=== PATIENT | female | born 1950 | race African-American/Black ===

== ENCOUNTER 2018-11-24 05:41 | Inpatient (IN) | payer OTHER ==
[~2018-11-24] VITALS: Ht 157.5 cm; Wt 73.8 kg
[~2018-11-24 05:41] MED LIST: COLESTID1 GM; HYDROCODON-ACE1 EAC5; NORCO 5-325 TA1 EACH PO; PERCOCET 5-3251 EACH PO; TRIAMTERENE-HC1 EAC3; ZOFRAN ODT4 MG PO
[2018-12-17] MEDS ORDERED: COLESTID1 GM PO (15:34)
[2018-12-17] MEDS ORDERED: TRIAMTERENE-HC1 EAC3 PO (15:34)
[2018-12-17] MEDS ORDERED: NORVASC5 MG PO (15:35)
[2018-12-17] MEDS ORDERED: LEVOXYL112 MCG PO (15:36)
[2018-12-17] MEDS ORDERED: CENTRUM SILVER1 EAC4 PO (15:36)
[2018-12-17] MEDS ORDERED: VITAMIN B-12250 MCG PO (15:38)
[2018-12-17] MEDS ORDERED: METHADONE HCL40 MG PO (15:38)
[2018-12-17] MEDS ORDERED: TRAMADOL 50 MG50 MG PO (16:25)
[2018-12-24 13:18] VITALS: BP 118/71
[2018-12-24 13:19] LABS: URINE BILIRUBIN NEGATIVE (Negative); URINE BLOOD NEGATIVE (Negative); URINE CLARITY CLEAR; URINE COLOR YELLOW; URINE GLUCOSE-RANDOM* NEGATIVE (Negative); URINE KETONES NEGATIVE (Negative); URINE LEUKOCYTES NEGATIVE (Negative); URINE NITRITE NEGATIVE (Negative); URINE PROTEIN (DIPSTICK) NEGATIVE (Negative); URINE UROBILINOGEN 0.2 E.U./dl (0.2-1.0)
[2018-12-24 14:30] LABS: HEMATOCRIT 33.1 % (37.0-47.0); HEMOGLOBIN 11.1 gm/dL (12.0-15.0); MCH 32.3 pg (26.0-34.0); MCHC 33.7 g/dL (28.0-37.0); MCV 95.9 fL (80.0-100.0); RBC 3.45 mil/uL (4.20-5.00); RDW 14.7 % (10.5-14.5); WBC 6.8 thou/uL (4.0-11.0)
[2018-12-24 14:45] LABS: PROTIME 9.6 Seconds (9.3-11.4)
[2018-12-24 14:46] LABS: ALBUMIN 3.8 g/dL (3.4-5.0); CALCIUM 10.2 mg/dL (8.5-10.1); CREATININE 1.2 mg/dL (0.6-1.0)
[2018-12-24 21:00] VITALS: BP 145/78
[2018-12-24 22:00] VITALS: BP 149/64
[2018-12-24 23:00] VITALS: BP 145/88
[2018-12-25] VITALS: BP 142/85
[2018-12-25 01:00] VITALS: BP 138/85
--- NOTE | 2018-12-25 04:20 | NUR ---
PATIENT ARRIVED ON UNIT ABOUT 1999 FROM OR. PATIENT ALERT AND ORIENTED X4. PATIENT SCREAMING FOR SOME PAIN MED, HAD ASSOCIATE TRAINER. CALLED DR FOR MORE PAIN MED, MORE WAS ORDERED BUT PATIENT DID NOT THINK THAT IT WAS GOING TO HELP. PATIENT KEPT SCREAMING FOR PAIN MED. TARGET DEVELOPER WAS CALLED UP TO TALK WITH PATIENT. TARGET DEVELOPER CALLED DR AND RECIEVED ORDERS TO DC THE ASSOCIATE TRAINER AND GIVE IVP MEDS. MEDS GIVEN TO PATIENT AND SHE RELAXED AND WENT TO SLEEP. PATAINT HAS BEEN ASLEEP OFF AND ON. PATIENT ALERT AND ORIENTED X4 BUT VERY ANXIOUS.
[2018-12-25 05:34] LABS: HEMATOCRIT 37.1 % (37.0-47.0); HEMOGLOBIN 12.3 gm/dL (12.0-15.0); MCH 32.2 pg (26.0-34.0); MCHC 33.3 g/dL (28.0-37.0); MCV 96.6 fL (80.0-100.0); RBC 3.83 mil/uL (4.20-5.00); RDW 14.4 % (10.5-14.5); WBC 9.9 thou/uL (4.0-11.0)
--- NOTE | 2018-12-25 07:41 | O ---
[facility] [place] [address] [place] [address] OPERATIVE REPORT Name: AMGALIS RICHMOND Room #: 428-P [facility] IN M.R.#: [id number] Admission: 12/24/18 ������������������ Attend Phys: Alfonzo Wheeler MD Discharge: ������������������ Date of : 46 Report #: [id number] THIS REPORT FOR: //name// CC: Huber Wheeler DATE OF SERVICE: 12/24/2018 PREOPERATIVE DIAGNOSIS: Right knee osteoarthritis. POSTOPERATIVE DIAGNOSIS: Right knee osteoarthritis. PROCEDURE: Right total knee arthroplasty using NAVIO robotic golf player assistant. SURGEON: Alfonzo Wheeler MD. COMMISSIONS MANAGER: None. ANESTHESIA: LMA with an adductor canal block. IMPLANTS: [employer] size 4 Legion cobalt chrome posterior stabilized femur, a size 2 tibia, a size 13 highly constrained polyethylene and a size 32 patella. TOURNIQUET TIME: 57 minutes. ESTIMATED BLOOD LOSS: 25 mL. COMPLICATIONS: None. SPECIMENS: None. CONDITION UPON LEAVING THE OPERATING ROOM: Stable. INDICATIONS FOR PROCEDURE: The patient is a 68-year-old female with severe right knee osteoarthritis. She failed conservative measures for this and after discussion with her she elected for right total knee arthroplasty. DESCRIPTION OF PROCEDURE: Risks, benefits, alternatives, complications were discussed in detail with the patient including but not limited to risk of anesthesia, risk of damage to nerves, arteries, blood vessels, risk for infection, bleeding, risk for continued knee pain and need for reoperation. Informed consent was obtained from the patient. Right knee was appropriately marked in the preoperative holding area. An adductor canal block was placed by Anesthesia. She was brought to the operating room and placed in the supine position on the operating room table. LMA anesthesia was induced without [facility] [address] [place] [address] OPERATIVE REPORT Name: MAGALIS RICHMOND Room #: 428-P [facility] IN M.R.#: [id number] Admission: 12/24/18 ������������������ Attend Phys: Alfonzo Wheeler MD Discharge: ������������������ Date of : 46 Report #: [id number]. Tourniquet was placed on the right thigh. Right lower extremity was prepped and draped in normal sterile fashion. Timeout was performed properly identifying the patient and procedure as well as the instrumentation and implants. All in the operating room were in agreement. Right lower extremity was exsanguinated, tourniquet was inflated. Tourniquet time was approximately 57 minutes. Standard midline approach to the knee was made with 10 blade through the skin. Dissection was taken down sharply to the fascia and deep flaps were developed medially and laterally. Fresh 10 blade was used to make a medial parapatellar arthrotomy and the knee was inspected. There was severe tricompartmental osteoarthritis. ACL and PCL were removed sharply. Reference pins were placed in the femur and the tibia and the knee was digitally mapped using the X BODY system. Sized to a size 4 femur and a size 2 tibia with a size 11 polyethylene spacer. After acceptance of the intraoperative plan, the distal femoral cut was made with a NAVIO jose. The size 4 cutting block was placed and anterior, posterior chamfer cuts were made. Attention was then turned to the tibia. The remainder of the menisci removed with Bovie cautery. Tibial resection guide was pinned in place using the X BODY system for placement of the guide. Tibial resection was made. Flexion and extension gaps were checked and found to have good balance in flexion and extension both medially and laterally. The tibia was sized, found to be a size 2. A size 2 tibial trial was placed, pinned and punched. A size 4 femoral trial was placed. The box cut was then made and this was then trialed with a size 11 and then a size 12 and a size 13 polyethylene and size 13 highly constrained polyethylene had the best fit with range of motion as well as stability medially and laterally with 1 mm of laxity throughout range of motion both manually as well as digitally. After this, trial components were removed. Bony ends were thoroughly irrigated with normal saline. A final size 2 tibia, size 4 Legion cobalt chrome posterior stabilized femur and a size 32 patella were cemented in place using standard cementation techniques. While the cement cured, a periarticular injection consisting of morphine, ropivacaine and epinephrine was placed around the knee joint capsule. After the cement had cured, the tourniquet was deflated. Hemostasis was obtained with Bovie cautery. Final size 13 highly constrained polyethylene was placed. Knee was taken through range of motion, found to be stable, found to have good balance in flexion and extension with good patellar tracking. The knee was thoroughly irrigated again. A gram of vancomycin was placed deep in the joint. Fascia was closed with 0 Vicryl, skin was closed with 2-0 Vicryl and 3-0 Monocryl. Dermabond and a HALI dressing were applied. The patient tolerated this procedure well and went to recovery room under care of Anesthesia postoperatively. ��������������������������������������������� <ELECTRONICALLY SIGNED> ���������������������������������������� By: Alfonzo Wheeler MD ��������������������������������������������� 12/25/18 0741 1903 00 Alfonzo Wheeler MD /nt
[2018-12-25 08:20] VITALS: BP 144/84
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
--- NOTE | 2018-12-25 14:38 | NUR ---
Assumed pt care at 7am.Pt in bed very anxious and c/o pain related to rt knee surgery ,asking for pain med nearly every hour.Rn informed pt about how often the med can be given but pt unable to understand.Pt thought that she's been denied of pain med despite given both po and iv pain med back to back.Dr Wheeler notified and his Pa rounded on pt. Order noted.Pt was very tearful and apologetic to this rn.She wanted rn forgive her for her inappropriate behavior and cursing earlier this shift.This rn notified pt rep for intervention.But since pt change her attitude and stop cursing,this rn decided not to trade pt but keep.Pt ambulated in hallways with therapist.Fair endurance noted.Pt family requested for mariano drsg to be change,rn told pt that it will be change later before dc.Will continue to monitor. continue to monitor.
[2018-12-25 18:02] VITALS: BP 156/92
[2018-12-25 20:30] VITALS: BP 169/110; BP 181/116
[2018-12-26 04:05] VITALS: BP 160/104
[2018-12-26 05:31] LABS: HEMATOCRIT 37.6 % (37.0-47.0); HEMOGLOBIN 12.6 gm/dL (12.0-15.0); MCH 32.1 pg (26.0-34.0); MCHC 33.4 g/dL (28.0-37.0); MCV 96.1 fL (80.0-100.0); RBC 3.91 mil/uL (4.20-5.00); RDW 14.4 % (10.5-14.5); WBC 9.6 thou/uL (4.0-11.0)
--- NOTE | 2018-12-26 05:53 | NUR ---
PATIENT ALERT AND ORIENTED X4. ASK FOR SOME KIND OF MEDICINE EVERY LITTLE BIT. EITHER PAIN MED, SLEEPING MED, OR JUST SOME KIND. UP TO BSC WITH ASSIST OF 2. DRESSING ON R KNEE HAS A SPOT OF BLOOD OF ON IT. SLEPT VERY LITTLE THIS SHIFT.
[2018-12-26 08:00] VITALS: BP 155/97
--- NOTE | 2018-12-26 10:45 | NUR ---
ASSUMED CARE OF PT AT 0700. ASSESSMENT CHARTED. A&O,X4. ANXIOUS AND C/O 10/ RIGHT KNEE PAIN S/P RIGHT TKA. PAIN MEDS GIVEN ORDERED, PT FREQUENTLY REQUESTS PAIN MEDS. RIGHT HALI DRESSING IN PLACE, DRIED BLOOD NOTED. PT UP X1 ASSIST TO BSC. WORKED WITH PBraydenT. THIS AM, UP TO CHAIR NOW. PT IN STABLE CONDITION. WILL CONTINUE TO MONITOR.
[2018-12-26] MEDS ORDERED: HYDROXYZINE HCL25 M1 PO (12:58)
[2018-12-26] MEDS ORDERED: NICOTINE TRANSD21 M1 TRANSDERM (12:58)
[2018-12-26] MEDS ORDERED: NEURONTIN 300300 M1 PO (12:58)
[2018-12-26] MEDS ORDERED: ASPIR 8181 MG PO (12:58)
[2018-12-26 13:48] VITALS: BP 155/97
[2018-12-26 15:28] VITALS: BP 155/97
--- NOTE | 2018-12-26 16:18 | NUR ---
DISCUSSED DC OPTIONS AGAIN WITH PT THIS AM AND SHE STILL WANTS TO GO DIRECTLY HOME WITH HH SERVICES. SHE IS AGREEABLE TO HH SERVICES AND CHOSE [facility]. NOTIFIED [facility] OF THE REFERRAL. PT NEEDS ROLLER WALKER FOR HOME. OFFERED OPTIONS AND SHE [employer] PROVIDER PLUS. MATY DELIVERED ROLLER WALKER TO PT'S ROOM. CONTACTED [employer] TO CHECK ON THE AVAILABILITY OF MEALS ON WHEELS YESTERDAY AND HAVE NOT HEARD BACK FROM THEM YET.
--- NOTE | 2018-12-26 17:08 | NUR ---
RECEIVED CALL FROM [employer] MAN[employer] SAYING THAT THERE IS A TEMPORAY FREEZE ON MEALS ON WHEELS PRESENTLY WITH OVER 100 PEOPLE ON THE WAIT LIST.
== END 2018-12-26 16:41 | disposition home health service (06) | DRG 470 ==
LOC: PRE 05:41 → 4E 12-24 12:25 → TBA 12-24 12:25 → 4E 12-24 20:24 → ENTRNSPT 12-26 16:34 → 4E 12-26 16:41
PROVIDERS: ADMIT Orthopaedic Surgery
DX: M17.11 Unilateral primary osteoarthritis, right knee (principal); F11.20 Opioid dependence, uncomplicated; G43.909 Migraine, unspecified, not intractable, without status migrainosus; G89.29 Other chronic pain; E78.5 Hyperlipidemia, unspecified; E03.9 Hypothyroidism, unspecified; Z60.2 Problems related to living alone; I10 Essential (primary) hypertension; Z88.8 Allergy status to other drugs, medicaments and biological substances; Z79.899 Other long term (current) drug therapy; Z79.82 Long term (current) use of aspirin; Z86.19 Personal history of other infectious and parasitic diseases; Z87.11 Personal history of peptic ulcer disease; Z98.49 Cataract extraction status, unspecified eye; Z90.710 Acquired absence of both cervix and uterus; Z71.6 Tobacco abuse counseling
CPT/HCPCS: 10783; 50010; 50101; 50415; 50954; 51130; 51225; 53000; 53078; 53364; 54118; 56527; 56528; 57095; 57103; 57110; 57127; 57180; 62110; 62900; 64039; 64043; 65135; 70005